=== PATIENT | male | born 1990 | race Hispanic/Latino ===

== ENCOUNTER 2024-06-22 09:05 | Emergency (ER) | payer SELFPAY ==
--- NOTE | 2024-06-22 09:46 | ER ---
Nurse's Notes [facility] [place] Name: Pranay Lemus Age: 34 yrs Sex: Male : 1990 Arrival Date: 06/22/2024 Time: 09:05 Bed IW1 Private MD: Diagnosis: Rash and other nonspecific skin eruption Presentation: 06/22 09:26 Chief complaint: Concerned about dark patch on forehead x 6 months. Systems Mgr #[id number]. Coronavirus screen: At this time, the client does not indicate any symptoms associated with coronavirus-19. Ebola Screen: No symptoms or risks identified at this time. Initial Sepsis Screen: Does the patient meet any 2 criteria? No. Patient's initial sepsis screen is negative. Initial Sepsis Screen: Does the patient have a suspected source of infection? No. Patient's initial sepsis screen is negative. Risk Assessment: Do you want to hurt yourself or someone else? Patient reports no desire to harm self or others. Onset of symptoms is unknown. 09:26 Method Of Arrival: Ambulatory hb 09:26 Acuity: ADOLPH 4 hb Triage Assessment: : General: Appears in no apparent distress. Behavior is calm, cooperative. Pain: Pain hb currently is 1 out of 10 on a pain scale. at worst was 3 out of 10 on a pain scale. Neuro: Level of Consciousness is awake, alert, obeys commands, Oriented to person, place, time, situation. Cardiovascular: Patient's skin is warm and dry. Respiratory: Respiratory effort is even, unlabored, Respiratory pattern is regular, symmetrical. Derm: brown quarter sized patch on forehead. Historical: - Allergies: : No Known Allergies; hb - Home Meds: : None [Active]; hb - PMHx: : None; hb - PSHx: : None; hb - Immunization history:: Adult Immunizations up to date. - Infectious Disease History:: Denies. - Social history:: Smoking status: Patient denies any tobacco usage or history of. Screenin:30 [facility] ED Fall Risk Assessment (Adult) History of falling in the last 3 months, hb including since admission No falls in past 3 months (0 pts) Confusion or Disorientation No (0 pts) Intoxicated or Sedated No (0 pts) Impaired Gait No (0 pts) Mobility Assist Device Used No (0 pt) Altered Elimination No (0 pt) Score/Fall Risk Level 0 - 2 = Low Risk Oriented to surroundings, Maintained a safe environment, Educated pt \T\ family on fall prevention, incl call for assistance when getting out of bed. Abuse screen: Denies threats or abuse. Denies injuries from another. Nutritional screening: No deficits noted. Tuberculosis screening: No symptoms or risk factors identified. Assessment: 09:30 General: See triage assessment . hb Vital Signs: 09:26 BP 133 / 109; Pulse 63; Resp 16; Temp 97.1; Pulse Ox 98% on R/A; Weight 104.33 kg; hb Height 5 ft. 6 in. ; Pain 0/10; 09:26 Body Mass Index 37.12 (104.33 kg, 167.64 cm) hb 09:26 Pain Scale: Adult hb ED Course: 09:07 Patient arrived in ED. im 09:13 Andre Nunn PA is PHCP. cp 09:13 Yves Calvin MD is Attending Physician. cp 09:29 Triage completed. hb 09:29 Arm band placed on. hb 09:30 Patient has correct armband on for positive identification. Provided Education on: .. hb 09:30 No provider procedures requiring assistance completed. Patient did not have IV access hb during this emergency room visit. 09:45 Dio Millan MD is Referral Physician. cp Administered Medications: No medications were administered Medication: 09:30 VIS not applicable for this client. hb Outcome: 09:46 Discharge ordered by . cp 09:54 Discharged to home ambulatory, hb 09:54 Condition: stable 09:54 Discharge instructions given to patient, Instructed on discharge instructions, follow up and referral plans. medication usage, Demonstrated understanding of instructions, follow-up care, medications, Prescriptions given X 1, 09:58 Patient left the ED. hb Signatures: Andre Nunn PA PA cp Shirley Cifuentes, NARCISO RN hb Flavia Harris im
--- NOTE | 2024-06-22 09:46 | EDPHYS ---
Physician Documentation [facility] Name: Pranay Lemus Age: 34 yrs Sex: Male : 1990 Arrival Date: 06/22/2024 Time: 09:05 Bed IW1 Private MD: ED Physician Yves Calvin HPI: 06/22 09:35 This 34 yrs old Male presents to ER via Ambulatory with complaints of Headache, Spot on cp head, check up. 09:35 The patient's rash thought to be caused by an unknown cause. cp 09:35 The rash is located on the left side of forehead. The rash can be described as cp hyperpigmented, well-circumscribed. Onset: The symptoms/episode began/occurred about 6-7 months ago. Associated signs and symptoms: Pertinent positives: intermittent pain and headache, Pertinent negatives: burning sensation, fever, itching. Treatment given at home: otc unknown cream. Historical: - Allergies: 09:29 No Known Allergies; hb - Home Meds: 09:29 None [Active]; hb - PMHx: 09:29 None; hb - PSHx: 09:29 None; hb - Immunization history:: Adult Immunizations up to date. - Infectious Disease History:: Denies. - Social history:: Smoking status: Patient denies any tobacco usage or history of. ROS: 09:39 Constitutional: Negative for body aches, chills, fever, cp 09:39 Skin: Positive for rash, of the left side of forehead, 09:39 Neuro: Positive for intermittent headache, Negative for altered mental status, dizziness, Exam: 09:40 Head/Face: Normocephalic, atraumatic. cp 09:40 Constitutional: The patient appears in no acute distress, alert, awake, non-toxic, well developed, well nourished, obese, 09:40 Cardiovascular: Rate: normal, 09:40 Respiratory: the patient does not display signs of respiratory distress, Respirations: normal, no use of accessory muscles, no retractions, labored breathing, is not present, 09:40 Abdomen/GI: Exam negative for discomfort, distension, guarding, Inspection: abdomen cp appears normal, 09:40 Back: pain, is absent, 09:40 Skin: rash can be described as outlined area of hyperpigmentation, non-tender and non palpable, approximate size of quarter, on the forehead, 09:40 Neuro: Orientation: to person, place \T\ time. Mentation: is normal, cp Vital Signs: 09:26 BP 133 / 109; Pulse 63; Resp 16; Temp 97.1; Pulse Ox 98% on R/A; Weight 104.33 kg; hb Height 5 ft. 6 in. ; Pain 0/10; 09:26 Body Mass Index 37.12 (104.33 kg, 167.64 cm) hb 09:26 Pain Scale: Adult hb MDM: 09:46 Medical Screening Exam initiated cp 09:46 Data reviewed: vital signs, nurses notes, and as a result, I will discharge patient. cp 09:46 Differential diagnosis: impetigo, cellulitis, tinea. Counseling: I had a detailed cp discussion with the patient and/or guardian regarding the historical points, exam findings, and any diagnostic results supporting the discharge/admit diagnosis, the need for outpatient follow up, a intelligence director, to return to the emergency department if symptoms worsen or persist or if there are any questions or concerns that arise at home. Administered Medications: No medications were administered Disposition: 11:12 Co-signature as Attending Physician, Yves Calvin MD I reviewed the patient's care rt provided by the Advanced Practice Provider and agree with the diagnosis and treatment plan. 06/23 09:24 Chart complete. cp Disposition Summary: 06/22/24 09:46 Discharge Ordered Notes: Location: Home cp Problem: an ongoing problem cp Symptoms: are unchanged cp Condition: Stable cp Diagnosis - Rash and other nonspecific skin eruption cp Followup: cp - With: Dio Millan MD - When: 1 week - Reason: Recheck today's complaints Discharge Instructions: - Discharge Summary Sheet cp - Allergies, Adult cp - Rash, Adult cp - Rash, Adult, Piur-[place]-E[place] cp Forms: - Medication Reconciliation Form cp - Antibiotic Education cp - Prescription Opioid Use cp - Patient Portal Instructions cp - Leadership Thank You Letter cp Prescriptions: - Nystatin-Triamcinolone 100,000-0.1 unit/g-% Topical cream - apply 1 application TOPICAL route 2 times per day for 7 days; 15 gram tube; cp Refills: 0, Product Selection Permitted Signatures: Andre Nunn PA PA cp Baxter, Heather, RN RN [place], Yves, MD MD rt
[2024-06-22 10:32] VITALS: BP 133/109; TEMP 97.1; O2SAT 98
== END 2024-06-22 09:58 | disposition home or self-care (01) ==
LOC: ER 09:05
DX: R21 Rash and other nonspecific skin eruption (principal); R51.9 Headache, unspecified
CPT/HCPCS: 99283